=== PATIENT | female | born 1965 | race Caucasian/White ===

== ENCOUNTER 2016-12-01 20:09 | Emergency (ER) | payer MEDICAID, OTHER ==
[~2016-12-01] VITALS: Ht 154.9 cm; Wt 67.7 kg
[~2016-12-01 20:09] MED LIST: ASPI-535 PO; ATOR20TA38 PO; AUG875 PO; AZIT250T94 PO; HYDR-3498 PO; HYDR-3671 PO; LORA10CA PO; METO-448 PO; PHEN-538 PO; [UNRECOGNIZED DRUG - CODE] PO
[2016-12-01 20:23] VITALS: Ht 154.9 cm; Wt 67.7 kg
[2016-12-01] MEDS ORDERED: hydrALAzine 20 MG INJ IV ONE (22:30)
[2016-12-01 22:31] LABS: URINE BLOOD (Dip) POC Trace-intact (NEGATIVE)
--- NOTE | 2016-12-01 23:03 | RADRPT ---
PROCEDURE: XR Chest. CLINICAL INDICATION: Chest pain. TECHNIQUE: Single frontal view of the chest was obtained COMPARISON: 03/17/2015. FINDINGS: The heart and mediastinum are within normal limits. The lungs are clear. There is no pleural effusion or pneumothorax. IMPRESSION: No acute disease. RPTAT: [facility] Physician [place] Date Time Electronically viewed and signed by Álvaro Morgan Physician on 12/01/2016 23:02 RS/
[2016-12-01 23:13] LABS: ADD SCAN DIFF NO
[2016-12-01 23:20] LABS: BASOPHIL # 0.1 10^3/ul (0.0-0.1); BASOPHILS % 0.5 % (0.0-2.0); EOSINOPHILS # 0.2 10^3/ul (0.0-0.5); EOSINOPHILS % 1.6 % (0.0-7.0); HEMATOCRIT 40.7 % (37.0-47.0); HEMOGLOBIN 13.1 g/dl (12.0-16.0); LYMPHOCYTES # 2.8 10^3/ul (0.8-2.9); LYMPHOCYTES % 29.8 % (15.0-51.0); MEAN CORPUSCULAR HGB CONC 32.2 g/dl (32.0-37.0); MEAN PLATELET VOLUME 9.3 fl (7.4-10.4); MONOCYTE # 0.6 10^3/ul (0.3-0.9); MONOCYTES % 6.8 % (0.0-11.0); NEUTROPHIL # 5.7 10^3/ul (1.6-7.5); NEUTROPHILS % 61.1 % (39.0-77.0); PLATELET COUNT 378 10^3/UL (140-415); RED BLOOD COUNT 4.52 10^6/ul (4.20-5.40); RED CELL DISTRIBUTION WIDTH 13.6 % (11.5-14.5); WHITE BLOOD COUNT 9.3 10^3/ul (4.8-10.8)
[2016-12-01 23:26] LABS: INR 0.94; PROTIME 12.6 Sec (12.2-14.2)
[2016-12-01 23:27] LABS: PARTIAL THROMBOPLASTIN TIME 30.9 Sec (25.0-35.0)
[2016-12-01 23:33] LABS: CHLORIDE 102 mmol/L (97-110); SODIUM 142 mmol/L (135-144)
[2016-12-01 23:36] LABS: ALBUMIN/GLOBULIN RATIO 1.21; ALKALINE PHOSPHATASE 137 IU/L (42-121); ANION GAP 15 (8-16); ASPARTATE AMINO TRANSFERASE 30 IU/L (15-46); BLOOD UREA NITROGEN 15 mg/dl (7-20); CARBON DIOXIDE 29 mmol/L (21-31); CREATININE 0.71 mg/dl (0.44-1.00); GLUCOSE 113 mg/dl (70-220); TOTAL PROTEIN 7.3 g/dl (6.1-8.1)
[2016-12-01 23:37] LABS: ALANINE AMINOTRANSFERASE 40 IU/L (13-69); CALCIUM 9.1 mg/dl (8.4-10.2)
[2016-12-01 23:45] LABS: B-TYPE NATRIURETIC PEPTIDE 31 PG/ML (0-125)
[2016-12-01 23:54] LABS: TROPONIN-I < 0.012 ng/ml (0.00-0.12)
[2016-12-02] MEDS ORDERED: LORAZEPAM 2 MG INJ IV ONE (00:30)
--- NOTE | 2016-12-02 02:23 | ERD ---
ER Documentation Chief Complaint Date/Time DATE: 12/02/16 TIME: 02:22 Chief Complaint LT SIDE CP NON RADIATING SINCE YESTERDAY WORSENED TONIGHT +SOB HPI This is a 51-year-old female comes in with chest pain nonradiating since yesterday. Said it worsened tonight. Patient also was on shortness breath. Also complains of numbness and tingling bilateral fingertips. Denies any fevers or chills. Denies any other current complaints. Pain is mild to moderate intensity no exacerbating or remitting factors. Patient does say she has been under a lot of stress lately and does have a history of anxiety disorder. ROS All systems reviewed and are negative except as per history of present illness. Medications Home Meds Active Scripts Metoprolol Tartrate* (Lopressor*) 25 Mg Tab, 25 MG PO BID, #60 TAB Prov:LYLA SHEPHERD 06/15/16 Phenazopyridine Hcl* (Pyridium*) 200 Mg Tab, 200 MG PO TID Y for DYSURIA, #6 TAB Prov:VALERIA GARCIA NP 07/12/15 Hydrocodone Bit-Acetaminophen* ([place]*) 5-325 Mg Tab, 1 TAB PO Q6 Y for PAIN, # 20 TAB Prov:VALERIA GARCIA NP 07/12/15 Azithromycin* (Zithromax*) 250 Mg Tablet, 250 MG PO .ZPACK DIRECTED, #6 TAB TAKE 500 MG (2 TABS) THE FIRST DAY THEN 250 MG (1 TAB) DAYS 2-5 Prov:CRYSTAL DE OLIVEIRA PA-C 06/05/15 Loratadine* (Claritin*) 10 Mg Capsule, 10 MG PO DAILY, #30 CAP Prov:RAJEEV HILL PA-C 05/31/15 Amoxicillin-Clavulanate K* (Augmentin*) 875 Mg Tab, 875 MG PO BID for 7 Days, TAB Prov:CRYSTAL DE OLIVEIRA PA-C 03/17/15 Reported Medications Famotidine (Heartburn Prevention) 20 Mg Tablet, 20 MG PO DAILY 03/17/15 Aspirin Ec (Aspir 81) 81 Mg Tablet.dr, 81 MG PO BID 03/17/15 Atorvastatin Calcium* (Atorvastatin Calcium*) 20 Mg Tablet, 20 MG PO HS 03/17/15 Hydralazine Hcl* (Hydralazine Hcl*) 25 Mg Tab, 25 MG PO DAILY 03/17/15 Metoprolol Tartrate* (Lopressor*) 25 Mg Tab, 25 MG PO BID 03/17/15 Allergies Allergies: Coded Allergies: No Known Allergy (Unverified , 12/01/16) PMhx/Soc History of Surgery: No Anesthesia Reaction: No Hx Neurological Disorder: No Hx Cardiac Disorders: Yes (HTN ) Hx Psychiatric Problems: Yes (ANXIETY) Hx Miscellaneous Medical Probl: Yes (HIGH CHOLESTEROL, THYROID) Hx Alcohol Use: No Hx Substance Use: No Hx Tobacco Use: No Smoking Status: Never smoker Physical Exam Vitals Vital Signs Date Time Temp Pulse Resp B/P Pulse Ox O2 Delivery O2 Flow Rate FiO2 12/01/16 22:39 85 16 178/88 100 Room Air 12/01/16 20:23 97.2 89 18 186/91 97 Physical Exam Const: [] Head: Atraumatic Eyes: Normal Conjunctiva ENT: Normal External Ears, Nose and Mouth. Neck: Full range of motion..~ No meningismus. Resp: Clear to auscultation bilaterally Cardio: Regular rate and rhythm, no murmurs Abd: Soft, non tender, non distended. Normal bowel sounds Skin: No petechiae or rashes Back: No midline or flank tenderness Ext: No cyanosis, or edema Neur: Awake and alert Psych: Normal Mood and Affect Result Diagram: 12/01/16223712/01/162237 Results 24 hrs Laboratory Tests Test 12/01/16 22:33 12/01/16 22:38 Bedside Urine Blood Trace-intact Bedside Urine Glucose (UA) Negative Bedside Urine Ketones (LAB) Trace Bedside Urine Leukocyte Esterase (L Negative Bedside Urine Nitrite (LAB) Negative Bedside Urine Protein (LAB) Negative Bedside Urine pH (LAB) 7.0 Activated Partial Thromboplast Time 30.9Sec Alanine Aminotransferase (ALT/SGPT) 40IU/L Albumin 4.0g/dl Albumin/Globulin Ratio 1.21 Alkaline Phosphatase 137IU/L Anion Gap 15 Aspartate Amino Transf (AST/SGOT) 30IU/L B-Type Natriuretic Peptide 31PG/ML Basophils # 0.110^3/ul Basophils % 0.5% Blood Urea Nitrogen 15mg/dl Calcium Level 9.1mg/dl Carbon Dioxide Level 29mmol/L Chloride Level 102mmol/L Creatinine 0.71mg/dl Direct Bilirubin 0.00mg/dl Eosinophils # 0.210^3/ul Eosinophils % 1.6% Globulin 3.30g/dl Glucose Level 113mg/dl Hematocrit 40.7% Hemoglobin 13.1g/dl INR International Normalized Ratio 0.94 Indirect Bilirubin 0.0mg/dl Lipase 114U/L Lymphocytes # 2.810^3/ul Lymphocytes % 29.8% Mean Corpuscular Hemoglobin 29.0pg Mean Corpuscular Hemoglobin Concent 32.2g/dl Mean Corpuscular Volume 90.0fl Mean Platelet Volume 9.3fl Monocytes # 0.610^3/ul Monocytes % 6.8% Neutrophils # 5.710^3/ul Neutrophils % 61.1% Nucleated Red Blood Cells # 0.010^3/ul Nucleated Red Blood Cells % 0.0/100WBC Platelet Count 80007^3/UL Potassium Level 4.0mmol/L Prothrombin Time 12.6Sec Prothrombin Time Ratio 1.0 Red Blood Count 4.5210^6/ul Red Cell Distribution Width 13.6% Sodium Level 142mmol/L Total Bilirubin 0.0mg/dl Total Protein 7.3g/dl Troponin I < 0.012ng/ml White Blood Count 9.310^3/ul Current Medications Medications (Trade) Dose Ordered Sig/Moisés Route PRN Reason Start Time Stop Time Status Last Admin Dose Admin Hydralazine HCl (Apresoline) 20 mg ONCE ONCE IV 12/01/16 22:30 12/01/16 22:31 DC 12/01/16 22:36 Lorazepam (Ativan) 1 mg ONCE ONCE IV 12/02/16 00:30 12/02/16 00:31 DC 12/02/16 01:23 Procedures/MDM Chest X-ray 1V Interpreted by me: Soft Tissue: No acute abnormalities Bones: No acute abnormalities Mediastinum/Cardiac Silhouette/Lungs: No acute abnormalities EKG: Rate/Rhythm: Normal Sinus Rhythm QRS, ST, T-waves: No changes consistent w/ acute ischemia Impression: No evidence of ischemia or arrhythmia Medical decision-makin year female with atypical chest pain likely represented anxiety disorder. Patient responded very well to Ativan and is now symptom-free. At this point, the patient is medically stable for outpatient management shows no evidence of cardiac etiology. Patient be discharged with a short course of lorazepam. Follow-up PCP. Departure Diagnosis: Primary Impression: Chest pain Chest pain type: unspecified Qualified Code: R07.9 - Chest pain, unspecified type Additional Impression: Anxiety Condition: Stable BERNARDA PAGE Dec 02, 2016 02:23
[2016-12-02] MEDS ORDERED: LORA1TAB PO (02:24)
[2016-12-02 03:21] VITALS: BP 115/75; PULSE 93; RESP 19
== END 2016-12-02 03:21 | disposition home or self-care (01) ==
LOC: E/R 20:09
DX: R07.9 Chest pain, unspecified (principal); F41.9 Anxiety disorder, unspecified; I10 Essential (primary) hypertension; R40.2142 Coma scale, eyes open, spontaneous, at arrival to emergency department; R40.2252 Coma scale, best verbal response, oriented, at arrival to emergency department; R40.2362 Coma scale, best motor response, obeys commands, at arrival to emergency department; R06.02 Shortness of breath; Z79.82 Long term (current) use of aspirin
CPT/HCPCS: 36415; 71010; 80053; 81003; 83690; 83880; 84484; 85025; 85610; 85730; 93005; 96374; 96375; J0360; J2060; Z7502

== ENCOUNTER 2017-03-31 08:42 | Emergency (ER) | payer OTHER ==
[~2017-03-31] VITALS: Ht 154.9 cm; Wt 68.0 kg
[~2017-03-31 08:42] MED LIST changes: +LORA1TAB PO
[2017-03-31 08:43] VITALS: Ht 154.9 cm; Wt 68.0 kg
[2017-03-31] MEDS ORDERED: SOD CHLORIDE 0.9% 1,000 ML IV STA (09:14)
[2017-03-31] MEDS ORDERED: ONDANSETRON 4 MG INJ IV STA (09:14)
[2017-03-31] MEDS ORDERED: KETOROLAC 30 MG INJ IV STA (09:14)
--- NOTE | 2017-03-31 09:57 | RADRPT ---
PROCEDURE: CT abdomen and pelvis without contrast. CLINICAL INDICATION: Abdominal pain. TECHNIQUE: CT of the abdomen and pelvis without contrast was performed on a multidetector high-resolution CT [facility]. Coronal and sagittal reformatted images were obtained from the axial source images. Images we re reviewed on a high-resolution PACS workstation. The total exam CTDI equals 10.6 mGy and the total exam DLP equals 547.31 mGy-cm. One or more of the following dose reduction techniques were used: - Automated exposure control. - Adjustment of the mA and/or kV according to patient size. - Use of iterative reconstruction technique. COMPARISON: CT dated 07/12/2015. FINDINGS: Visualized lower thorax: The visualized lung bases are clear. The visualized heart is unremarkable. Hepatobiliary system and spleen: There is diffuse fatty infiltration of the liver, which is otherwise grossly unremarkable. There is no intra or extrahepatic biliary ductal dilatation. The gallbladder is grossly unremarkable. The spl een is grossly unremarkable. The pancreas is grossly unremarkable. Adrenal glands and genitourinary system: The adrenal glands are grossly unremarkable. There is no nephrolithiasis or hydronephrosis. The urin kit bladder is grossly unremarkable. The uterus and adnexa are grossly unremarkable. Gastrointestinal system: The stomach and small bowel are unremarkable. There is sigmoid diverticulosis without bowel wall thi ckening or evidence of obstruction. The appendix is in the right lower quadrant and is unremarkable. Peritoneum, vascular, and lymphatics: There is no free intraperitoneal air or free fluid. There is no mesenteric or retroperitoneal adenop athy. There are atherosclerotic changes of the aorta, which is nonaneurysmal. Musculoskeletal system: There are no concerning osseous lesions. IMPRESSION: 1. Hepatic steatosis. 2. Sigmoid diverticulosis. 3. Vascular calcifications consistent with atherosclerosis. RPTAT: GG .Ozzy Veronica MD, MD Date Time Electronically viewed and signed by .Ozzy Veronica MD, MD on 03/31/2017 09:57 .P/
[2017-03-31 10:03] LABS: ADD SCAN DIFF NO
[2017-03-31 10:23] LABS: UR BACTERIA FEW /HPF (NONE SEEN); UR MUCUS FEW /HPF (NONE SEEN); UR RBC 3 /HPF (0-5); UR SQUAMOUS EPITHELIAL CELL MODERATE /HPF (FEW)
[2017-03-31 10:24] LABS: ALBUMIN 4.3 g/dl (3.3-4.9); ALBUMIN/GLOBULIN RATIO 1.26; BILIRUBIN,INDIRECT 0.1 mg/dl (0-1.1); BILIRUBIN,TOTAL 0.1 mg/dl (0.2-1.3); CREATININE 0.64 mg/dl (0.44-1.00); POTASSIUM 4.2 mmol/L (3.5-5.1); TOTAL PROTEIN 7.7 g/dl (6.1-8.1)
[2017-03-31 10:29] LABS: ADD UMIC YES; UR ASCORBIC ACID 20 mg/dL (NEGATIVE); UR BILIRUBIN (Dip) NEGATIVE (NEGATIVE); UR BLOOD (Dip) NEGATIVE (NEGATIVE); UR CLARITY SLIGHTLY CLOUDY (CLEAR); UR COLOR YELLOW (YELLOW); UR GLUCOSE (Dip) NEGATIVE (NEGATIVE); UR KETONES (Dip) NEGATIVE (NEGATIVE); UR LEUKOCYTE ESTERASE (Dip) 3+ Leu/ul (NEGATIVE); UR NITRITE (Dip) NEGATIVE (NEGATIVE); UR SPECIFIC GRAVITY (Dip) 1.017 (1.003-1.030); UR TOTAL PROTEIN (Dip) NEGATIVE (NEGATIVE); UR UROBILINOGEN (Dip) NEGATIVE (NEGATIVE)
[2017-03-31 10:30] LABS: BASOPHILS % 0.5 % (0.0-2.0); EOSINOPHILS # 0.1 10^3/ul (0.0-0.5); EOSINOPHILS % 1.7 % (0.0-7.0); HEMATOCRIT 41.5 % (37.0-47.0); HEMOGLOBIN 13.1 g/dl (12.0-16.0); LYMPHOCYTES % 30.6 % (15.0-51.0); MEAN CORPUSCULAR HEMOGLOBIN 28.6 pg (29.0-33.0); MEAN CORPUSCULAR HGB CONC 31.6 g/dl (32.0-37.0); MEAN CORPUSCULAR VOLUME 90.6 fl (82.0-101.0); MEAN PLATELET VOLUME 9.1 fl (7.4-10.4); MONOCYTE # 0.4 10^3/ul (0.3-0.9); MONOCYTES % 6.2 % (0.0-11.0); NEUTROPHILS % 60.7 % (39.0-77.0); PLATELET COUNT 411 10^3/UL (140-415); RED BLOOD COUNT 4.58 10^6/ul (4.20-5.40); RED CELL DISTRIBUTION WIDTH 13.1 % (11.5-14.5); WHITE BLOOD COUNT 6.6 10^3/ul (4.8-10.8)
[2017-03-31] MEDS ORDERED: CEPH-443 PO (11:00)
[2017-03-31] MEDS ORDERED: IBUP-1542 PO (11:00)
--- NOTE | 2017-03-31 15:38 | ERD ---
ER Documentation Chief Complaint Date/Time DATE: 03/31/17 TIME: 15:34 Chief Complaint burn with urination x4 days, hx: kidney stones HPI This is a 52-year-old female that presents to the ER with burning with urination for the last 4 days and flank pain. She has a past medical history of kidney stones however denies any hematuria. Patient does not have any nausea vomiting or diarrhea she also complains of generalized abdominal pain. Abdominal pain is throbbing quality and worse with movement. Patient has not tried anything for the pain. She denies any fevers or chills. Patient has not traveled anywhere. Patient denies any vaginal discharge or pelvic pain. ROS 12 point review of systems was done, all negative except per HPI. Medications Home Meds Active Scripts Ibuprofen* (Motrin*) 600 Mg Tab, 600 MG PO Q6, #30 TAB Prov:XIANG AVERY 03/31/17 Cephalexin* (Keflex*) 500 Mg Capsule, 500 MG PO BID for 7 Days, CAP Prov:XIANG AVERY 03/31/17 Lorazepam* (Lorazepam*) 1 Mg Tablet, 1 MG PO Q8H Y for ANXIETY, #15 TAB Prov:BERNARDA PAGE 12/02/16 Metoprolol Tartrate* (Lopressor*) 25 Mg Tab, 25 MG PO BID, #60 TAB Prov:LYLA SHEPHERD 06/15/16 Phenazopyridine Hcl* (Pyridium*) 200 Mg Tab, 200 MG PO TID Y for DYSURIA, #6 TAB Prov:VALERIA GARCIA NP 07/12/15 Hydrocodone Bit-Acetaminophen* ([place]*) 5-325 Mg Tab, 1 TAB PO Q6 Y for PAIN, # 20 TAB Prov:VALERIA GARCIA NP 07/12/15 Azithromycin* (Zithromax*) 250 Mg Tablet, 250 MG PO .LILI DIRECTED, #6 TAB TAKE 500 MG (2 TABS) THE FIRST DAY THEN 250 MG (1 TAB) DAYS 2-5 Prov:CRYSTAL DE OLIVEIRA PA-C 06/05/15 Loratadine* (Claritin*) 10 Mg Capsule, 10 MG PO DAILY, #30 CAP Prov:RAJEEV HILL PA-C 05/31/15 Amoxicillin-Clavulanate K* (Augmentin*) 875 Mg Tab, 875 MG PO BID for 7 Days, TAB Prov:CRYSTAL DE OLIVEIRA PA-C 03/17/15 Reported Medications Famotidine (Heartburn Prevention) 20 Mg Tablet, 20 MG PO DAILY 03/17/15 Aspirin Ec (Aspir 81) 81 Mg Tablet.dr, 81 MG PO BID 03/17/15 Atorvastatin Calcium* (Atorvastatin Calcium*) 20 Mg Tablet, 20 MG PO HS 03/17/15 Hydralazine Hcl* (Hydralazine Hcl*) 25 Mg Tab, 25 MG PO DAILY 03/17/15 Metoprolol Tartrate* (Lopressor*) 25 Mg Tab, 25 MG PO BID 03/17/15 Allergies Allergies: Coded Allergies: No Known Allergy (Unverified , 12/01/16) PMhx/Soc History of Surgery: No Anesthesia Reaction: No Hx Neurological Disorder: No Hx Cardiac Disorders: Yes (HTN ) Hx Psychiatric Problems: Yes (ANXIETY) Hx Miscellaneous Medical Probl: Yes (HIGH CHOLESTEROL, THYROID) Hx Alcohol Use: No Hx Substance Use: No Hx Tobacco Use: No Smoking Status: Never smoker Physical Exam Vitals Vital Signs Date Time Temp Pulse Resp B/P Pulse Ox O2 Delivery O2 Flow Rate FiO2 03/31/17 08:43 98.3 89 19 182/84 99 Physical Exam GENERAL: The patient is well developed and appropriate for usual state of health , in no apparent distress. HEENT: Atraumatic. CHEST: Clear to auscultation bilaterally. There are no rales, wheezes or rhonchi. HEART: Regular rate and rhythm. No murmurs, clicks, rubs or gallops. ABDOMEN: Soft, and nondistended. patient is ttp to the RLQ. Good bowel sounds. No rebound or guarding. No gross peritonitis. No gross organomegaly or masses. No Edgar sign or McBurney point tenderness. BACK: No midline or flank tenderness. NEURO: Alert and oriented. SKIN: There is no apparent rash or petechia. The skin is warm and dry. Result Diagram: 03/31/1740 03/31/1740 Results 24 hrs Laboratory Tests Test 03/31/17 09:40 03/31/17 09:50 White Blood Count 6.610^3/ul Red Blood Count 4.5810^6/ul Hemoglobin 13.1g/dl Hematocrit 41.5% Mean Corpuscular Volume 90.6fl Mean Corpuscular Hemoglobin 28.6pg Mean Corpuscular Hemoglobin Concent 31.6g/dl Red Cell Distribution Width 13.1% Platelet Count 98438^3/UL Mean Platelet Volume 9.1fl Neutrophils % 60.7% Lymphocytes % 30.6% Monocytes % 6.2% Eosinophils % 1.7% Basophils % 0.5% Nucleated Red Blood Cells % 0.0/100WBC Neutrophils # 4.010^3/ul Lymphocytes # 2.010^3/ul Monocytes # 0.410^3/ul Eosinophils # 0.110^3/ul Basophils # 0.010^3/ul Nucleated Red Blood Cells # 0.010^3/ul Sodium Level 144mmol/L Potassium Level 4.2mmol/L Chloride Level 102mmol/L Carbon Dioxide Level 28mmol/L Anion Gap 18 Blood Urea Nitrogen 9mg/dl Creatinine 0.64mg/dl Glucose Level 114mg/dl Calcium Level 9.0mg/dl Total Bilirubin 0.1mg/dl Direct Bilirubin 0.00mg/dl Indirect Bilirubin 0.1mg/dl Aspartate Amino Transf (AST/SGOT) 32IU/L Alanine Aminotransferase (ALT/SGPT) 38IU/L Alkaline Phosphatase 118IU/L Total Protein 7.7g/dl Albumin 4.3g/dl Globulin 3.40g/dl Albumin/Globulin Ratio 1.26 Lipase 76U/L Urine Color YELLOW Urine Clarity SLIGHTLY CLOUDY Urine pH 6.0 Urine Specific [place] 1.017 Urine Ketones NEGATIVEmg/dL Urine Nitrite NEGATIVEmg/dL Urine Bilirubin NEGATIVEmg/dL Urine Urobilinogen NEGATIVEmg/dL Urine Leukocyte Esterase 3+Nanette/ul Urine Microscopic RBC 3/HPF Urine Microscopic WBC 3/HPF Urine Squamous Epithelial Cells MODERATE/HPF Urine Bacteria FEW/HPF Urine Mucus FEW/HPF Urine Hemoglobin NEGATIVEmg/dL Urine Glucose NEGATIVEmg/dL Urine Total Protein NEGATIVEmg/dl Current Medications Medications (Trade) Dose Ordered Sig/Moisés Route PRN Reason Start Time Stop Time Status Last Admin Dose Admin Sodium Chloride (NS) 1,000 ml @ 1,000 mls/hr Q1H STAT IV 03/31/17 09:14 03/31/17 10:13 DC 03/31/17 09:37 Ondansetron HCl (Zofran Inj) 4 mg ONCE STAT IV 03/31/17 09:14 03/31/17 09:17 DC 03/31/17 09:37 Ketorolac Tromethamine (Toradol) 30 mg ONCE STAT IV 03/31/17 09:14 03/31/17 09:17 DC 03/31/17 09:37 Procedures/MDM This is a 52-year-old female presents to the ER with urinary frequency and dysuria. Patient does have a urinary tract infection, patient did have some right lower quadrant abdominal pain on physical examination and therefore workup was ordered to rule out acute abdomen. At this time suspicion for acute abdomen is low as examinations have been normal. There is no evidence of kidney stones, septic stone, obstructive stone. Patient will be sent home with Keflex and ibuprofen. She is to follow-up with her primary care doctor within 1 -2 days return to ER sooner if symptoms worsen. My medical decision making was shared with the patient she understands and agrees with plan. Departure Diagnosis: Primary Impression: UTI (urinary tract infection) Condition: Stable Patient Instructions: Understanding Urinary Tract Infections (UTIs) Additional Instructions: Llame al doctor MAANA y ino lisa RENAE PARA DENTRO DE 1-2 ADAMS.Dgale a la secretaria que nosotros le instruimos hacer esta renae.Avise o llame si ann condicin se empeora antes de la renae. Regresa aqui si peor o no mejor. XIANG AVERY Mar 31, 2017 15:38
== END 2017-03-31 11:13 | disposition home or self-care (01) ==
LOC: FTE 08:42
DX: N39.0 Urinary tract infection, site not specified (principal); I10 Essential (primary) hypertension; Z79.82 Long term (current) use of aspirin
CPT/HCPCS: 74176; 80053; 81001; 83690; 85025; J1885; J2405; J7030; 36415; 96374; 96375

== ENCOUNTER 2017-07-20 12:10 | Emergency (ER) | payer OTHER ==
[~2017-07-20] VITALS: Ht 160 cm; Wt 70.0 kg
[~2017-07-20 12:10] MED LIST changes: +CEPH-443 PO; +IBUP-1542 PO; +[UNRECOGNIZED DRUG - CODE] PO; -[UNRECOGNIZED DRUG - CODE] PO
[2017-07-20 12:12] VITALS: Ht 160 cm; Wt 70.0 kg
[2017-07-20] MEDS ORDERED: METO-319 PO (13:13)
[2017-07-20] MEDS ORDERED: METOPROLOL (XL) 50 MG TAB PO ONE (13:30)
--- NOTE | 2017-07-20 13:46 | ERD ---
ER Documentation Chief Complaint Chief Complaint headache since yesterday has been without meds x 2 days HPI This is a 52-year-old female with a history of well-known and established essential hypertension who presents after running out of her medications for 2 days. She now describes increased anxiety and social stressors. She notes that she has had a mild, gradual onset, frontal headache that is approximately 5 out of 10. She does note mild associated nausea but no chest pain or exertional symptoms. She states these symptoms are very similar to episodes in the past and her blood pressures been elevated. She denies any numbness or tingling, slurred speech or motor weakness. She is asking for refill of her metoprolol 50 mg once daily. ROS All systems reviewed and are negative except as per history of present illness. Medications Home Meds Active Scripts Metoprolol Succinate* (Toprol XL*) 50 Mg Tab.er.24h, 50 MG PO DAILY, #30 TAB Prov:RONNIE JUNIOR MD 07/20/17 Ibuprofen* (Motrin*) 600 Mg Tab, 600 MG PO Q6, #30 TAB Prov:XIANG AVERY 03/31/17 Cephalexin* (Keflex*) 500 Mg Capsule, 500 MG PO BID for 7 Days, CAP Prov:XIANG AVERY 03/31/17 Lorazepam* (Lorazepam*) 1 Mg Tablet, 1 MG PO Q8H Y for ANXIETY, #15 TAB Prov:BERNARDA PAGE 12/02/16 Metoprolol Tartrate* (Lopressor*) 25 Mg Tab, 25 MG PO BID, #60 TAB Prov:LYLA SHEPHERD 06/15/16 Phenazopyridine Hcl* (Pyridium*) 200 Mg Tab, 200 MG PO TID Y for DYSURIA, #6 TAB Prov:VALERIA GARCIA [employer] 07/12/15 Hydrocodone Bit-Acetaminophen* ([place]*) 5-325 Mg Tab, 1 TAB PO Q6 Y for PAIN, # 20 TAB Prov:VALERIA GARCIA [employer] 07/12/15 Azithromycin* (Zithromax*) 250 Mg Tablet, 250 MG PO .ArianaPACK DIRECTED, #6 TAB TAKE 500 MG (2 TABS) THE FIRST DAY THEN 250 MG (1 TAB) DAYS 2-5 Prov:CRYSTAL DE OLIVEIRA PA-C 06/05/15 Loratadine* (Claritin*) 10 Mg Capsule, 10 MG PO DAILY, #30 CAP Prov:RAJEEV HILL PA-C 05/31/15 Amoxicillin-Clavulanate K* (Augmentin*) 875 Mg Tab, 875 MG PO BID for 7 Days, TAB Prov:CRYSTAL DE OLIVEIRA PA-C 03/17/15 Reported Medications Famotidine (Heartburn Prevention) 20 Mg Tablet, 20 MG PO DAILY 03/17/15 Aspirin Ec (Aspir 81) 81 Mg Tablet.dr, 81 MG PO BID 03/17/15 Atorvastatin Calcium* (Atorvastatin Calcium*) 20 Mg Tablet, 20 MG PO HS 03/17/15 Hydralazine Hcl* (Hydralazine Hcl*) 25 Mg Tab, 25 MG PO DAILY 03/17/15 Metoprolol Tartrate* (Lopressor*) 25 Mg Tab, 25 MG PO BID 03/17/15 Allergies Allergies: Coded Allergies: No Known Allergy (Unverified , 12/01/16) PMhx/Soc History of Surgery: No Anesthesia Reaction: No Hx Neurological Disorder: No Hx Cardiac Disorders: Yes (HTN ) Hx Psychiatric Problems: Yes (ANXIETY) Hx Miscellaneous Medical Probl: Yes (HIGH CHOLESTEROL, THYROID) Hx Alcohol Use: No Hx Substance Use: No Hx Tobacco Use: No FmHx Family History: No diabetes Physical Exam Vitals Vital Signs Date Time Temp Pulse Resp B/P Pulse Ox O2 Delivery O2 Flow Rate FiO2 07/20/17 12:12 98.7 94 18 217/111 98 Physical Exam General: Well developed, well nourished, no acute distress Head: Normocephalic, atraumatic. Eyes: Pupils equally reactive, EOM intact ENT: Moist mucous membranes Neck: Supple, no lymphadenopathy Respiratory: Lungs clear bilaterally, no distress Cardiovascular: RRR, no murmurs, rubs, or gallops Abdominal: Soft, non-tender, non-distended, no peritoneal signs : Deferred MSK: No edema, no unilateral swelling, 5/5 strength Neurologic: Alert and oriented, moving all extremities, normal speech, no focal weakness, no cerebellar signs of a steady gait, normal rapid alternating movements Skin: No rash Psych: Normal mood Results 24 hrs Current Medications Medications (Trade) Dose Ordered Sig/Moisés Route PRN Reason Start Time Stop Time Status Last Admin Dose Admin Metoprolol Succinate (Toprol Xl) 50 mg ONCE ONCE PO 07/20/17 13:30 07/20/17 13:31 DC Procedures/MDM The patient's headache is unlikely related to serious etiology. The patient does not exhibit any clinical signs or symptoms, and has no risk factors to suggest headache etiology such as subarachnoid hemorrhage, acute vertebral or carotid dissection, intracranial mass, epidural, subdural hematoma, dural venous sinus thrombosis, giant cell arteritis, or pseudotumor cerebri. Patient's blood pressure was elevated (>120/80) but appears stable without evidence of hypertensive emergency or urgency. The patient was counseled about the risks of hypertension and urged to pursue outpatient monitoring and therapy within a week with their primary care physician. The patient does regularly have a headache when her blood pressure is elevated and she has an otherwise nonfocal neurologic exam. We discussed the risks, benefits, alternatives of CT imaging. In my opinion I do not feel that CT is absolutely necessary but did offer the study. The patient would like to defer imaging which I believe is reasonable. The patient's blood pressure is trending down slightly. I have written for her metoprolol 50 XL in the first dose was to be given here. However, it appears that the patient may have left prior to receiving her prescription and medication. My charge nurse will hold onto the prescriptions if the patient returns. We discussed follow up with the patient's primary care doctor within 24 to 48 hours as needed. We also discussed return to the emergency room for worsening symptoms or worsening condition. Outpatient referral: [None required] Discharge Medications: Metoprolol 50 XL total 30 Departure Diagnosis: Primary Impression: Asymptomatic hypertensive urgency Condition: Stable Patient Instructions: Hypertension, Established, Out Of Control Referrals: [facility] YOU HAVE RECEIVED A MEDICAL SCREENING EXAM AND THE RESULTS INDICATE THAT YOU DO NOT HAVE A CONDITION THAT REQUIRES URGENT TREATMENT IN THE EMERGENCY DEPARTMENT. FURTHER EVALUATION AND TREATMENT OF YOUR CONDITION CAN WAIT UNTIL YOU ARE SEEN IN YOUR DOCTORS OFFICE WITHIN THE NEXT 1-2 DAYS. IT IS YOUR RESPONSIBILITY TO MAKE AN APPOINTMENT FOR FOLOW-UP CARE. IF YOU HAVE A PRIMARY DOCTOR --you should call your primary doctor and schedule an appointment IF YOU DO NOT HAVE A PRIMARY DOCTOR YOU CAN CALL OUR PHYSICIAN REFERRAL HOTLINE AT IF YOU CAN NOT AFFORD TO SEE A PHYSICIAN YOU CAN CHOSE FROM THE FOLLOWING [facility] [address] [place] [address] [facility] [address] [facility] [address] [facility] [place] [address] [facility]. [facility]. [address] [facility]. [facility] YOU HAVE RECEIVED A MEDICAL SCREENING EXAM AND THE RESULTS INDICATE THAT YOU DO NOT HAVE A CONDITION THAT REQUIRES URGENT TREATMENT IN THE EMERGENCY DEPARTMENT. FURTHER EVALUATION AND TREATMENT OF YOUR CONDITION CAN WAIT UNTIL YOU ARE SEEN IN YOUR DOCTORS OFFICE WITHIN THE NEXT 1-2 DAYS. IT IS YOUR RESPONSIBILITY TO MAKE AN APPOINTMENT FOR FOLOW-UP CARE. IF YOU HAVE A PRIMARY DOCTOR --you should call your primary doctor and schedule and appointment IF YOU DO NOT HAVE A PRIMARY DOCTOR YOU CAN CALL OUR PHYSICIAN REFERRAL HOTLINE AT . IF YOU CAN NOT AFFORD TO SEE A PHYSICIAN YOU CAN CHOSE FROM THE FOLLOWING [facility] INSTITUTIONS: [facility] [address] [place] [address] [facility] [address] [place] [address] [facility] [address] [place] [address] Additional Instructions: Call your primary care doctor TOMORROW for an appointment during the next 1 WEEK.Tell the unit secretary that you were referred from this facility.See the doctor sooner or return here if your condition worsens before your appointment time. RONNIE JUNIOR MD Jul 20, 2017 13:46
== END 2017-07-20 15:17 | disposition home or self-care (01) ==
LOC: E/R 12:10
DX: I16.0 Hypertensive urgency (principal); I10 Essential (primary) hypertension; Z79.82 Long term (current) use of aspirin
CPT/HCPCS: Z7502; Z7610; 99283

== ENCOUNTER 2018-03-26 19:06 | Inpatient (IN) | END 2018-03-28 14:00 | disposition home or self-care (01) | DRG 627 ==